=== PATIENT | male | born 1940 | race Asian ===

== ENCOUNTER 2017-05-24 10:10 | Day surgery (SDC) | payer BC ==
--- NOTE | 2017-05-24 19:28 | PROC ---
Bone Marrow Aspiration/Biopsy - Consent Risks and Benefits Explained: Yes Consent on Chart: Yes - Procedure Location: Left Iliac Crest Anesthesia: 1% Lidocaine Specimen: Obtained Position: Other (right lateral) Patient tolerated procedure: Well with minimal pain Sterile Dressing Applied: Yes
--- NOTE | 2017-05-24 19:33 | PN ---
Progress Note (short form) - Note Progress Note: PAtient seen and examined 77 y/o patient with myeloproliferative disorder on hydrea. Here for elective BMBX . h/o monoclonal B lymphocytosis. Also with anemia AFVSS Cor: RSR, No murmurs, No gallops Lungs: Clear to P&A Abd: Soft, Normal bowel sounds, No organomegaly Ext:No significant edema LAbs/Meds reviewed A/P 77 y/o patient with MPD here for elective bone marrow biopsy informed consent obtained
--- NOTE | 2017-05-30 16:45 | PATH ---
Surgical Pathology Report Patient Name: ALLYN OLVERA Med. Rec. #: [id number] /Age/Gender: 1940 (Age: 77) / M Account: [id number] Location: [facility] MED/SURG Taken: 05/24/2017 Received: 05/24/2017 Reported: 05/30/2017 Physicians: Mally Garibay M.D. 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 Bone Marrow Morphology Report ([id number]) shows the following: DIAGNOSIS: BONE MARROW CLOT SECTION, AND ASPIRATE SMEARS: LIMITED CORE BIOPSY/ CLOT SECTION DUE TO SAMPLING BIAS, SEE COMMENT. CELLULAR BONE MARROW ASPIRATE WITH MATURING TRILINEAGE HEMATOPOIESIS, WITH MILD DYSPLASIA AND ATYPICAL MEGAKARYOCYTES, SEE COMMENT. NO INCREASE OF MYELOBLASTS. 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 Prior bone marrow evaluation on record ([id number], 03/2015) demonstrated similar features; JAK2 [id number] was detected. Due to the limited nature of the core biopsy/particle clot section, the overall assessment is limited. Recent (05/21/2017) CBC shows normal leukocyte count and differential, normocytic normochromic anemia, and thrombocytosis. In the appropriate clinical setting, the findings in the current sample raise the possibility of a mixed myelodysplastic/myeloproliferative neoplasm (MDS/MPN), such as refractory anemia with ring sideroblasts, with associated thrombocytosis (RARS-T). Correlation with pertinent clinical, imaging and laboratory data, including the results of the cytogenetic/ FISH studies, is needed for complete diagnostic interpretation. Flow cytometry performed and interpreted at [place], [place] ([id number]) shows the following: INTERPRETATION: Small (2% of total events) clonal B-cell population with nonspecific immunophenotype is detected, see comment. No increase of myeloblasts. Comment: The findings are similar to those in a prior bone marrow flow cytometric assessment on record ([id number], March 2015- 3% clonal B-cells with nonspecific immunophenotype). The significance of the findings is indeterminate. The differential diagnosis includes monoclonal B-lymphocytosis (MBL), and very low level bone marrow involvement by a low-grade B-cell lymphoproliferative process with nonspecific immunophenotype. Phenotype: There is a mixed population of maturing myeloid cells, B cells and T cells. No abnormal myeloid maturation is seen. There is no increase in CD34 positive blasts, and they comprise less than 1% of the total cells. Myeloid cells are 90% and monocytes are 1.5% of total cells. The T-cells (3% of total) show no bowling T-cell antigen deletion. A clonal (Brinsmade, dim) B-cell population with moderate CD19, and bright CD20 and FMC7 expression, with no definite surface CD5, CD10, or CD11c expression, 2% of total events, is present. Hematologic FISH Report performed and interpreted at [facility] in [place], [place] ([id number]) shows the following. INTERPRETATION: No evidence of deletion 5q or monosomy 5 is present. No evidence of deletion 7q or monosomy 7 is present. No evidence of trisomy 8 (+8) is present. No evidence of deletion 13q14 is present. No evidence of a rearrangement of 11q23. No evidence of a deletion of the p53 (17p13) locus. No evidence of deletion 20q12 is present. Comments: The study is negative for many of the most common recurrent genetic abnormalities in Myelodysplastic Syndrome. Correlation with pending cytogenetics ([id number]) is recommended. Additional Molecular and cytogenetic tests are pending, and a report will follow. Electronically Signed Srikanth Nassar M.D. Addendum Reported: 06/04/2017 Addendum Diagnosis Cytogenetics Report received from [facility], [place], [place] ([id number]) shows 46,XY[20] Normal Karyotype. See [facility] report for additional details. Srikanth Nassar M.D. Addendum Reported: 06/05/2017 Addendum Diagnosis Molecular Pathology Report received from [facility] in [place], [place] ([id number]) shows the following: [employer] Sequencing MDS Panel: Integrated Molecular Report RESULTS Mutational Analysis Gene(s) With Detected Alterations Result Classification JAK2 p.V617F (c.1849G>T) Pathogenic SF3B1 p.K700E (c.2098A>G) Pathogenic TET2 p.T8971ip (c.3732_3733delCT) Pathogenic Genes with No Detected Alterations of the Amino Acid Sequence: ASXL1, CBLC, DNMT3A, ETV6, EZH2, IDH1, IDH2, NRAS, PHF6, RUNX1, TP53, U2AF1 INTERPRETATION OF RESULTS Molecular Mutation is detected in the JAK2 gene at p.V617F with frequency of 34.6%. Mutation is detected in the SF3B1 gene at p.K700E with frequency of 42.4%. Mutation is detected in the TET2 gene at p.L1889kg with frequency of 28.4%. TET methylcytosine dioxygenase 2 (TET2) is a human gene. TET2 encodes a protein that catalyzes the conversion of the modified DNA base methylcytosine to 5- hydroxymethylcytosine. Mutations in this gene were first identified in myeloid neoplasms with deletion or uniparental disomy at 4q24. TET2 may also be a candidate for active DNA demethylation, the catalytic removal of the methyl group added to the fifth carbon on the cytosine base. Somatic TET2 mutations are frequently observed in myelodysplastic syndromes (MDS), myeloproliferative neoplasms (MPN), MDS/MPN overlap syndromes including chronic myelomonocytic leukaemia (CMML), acute myeloid leukaemias (AML) and secondary AML (sAML). Nonsense and frame-shift mutations are generally associated with poor prognosis and worse overall survival. See [facility] report for additional details. Srikanth Nassar M.D. Gross Description A. Received in formalin, labeled with the patient's name and indicated on the requisition to the bone marrow biopsy, is a 0.4 x 0.3 x 0.1 cm aggregate of red-brown fragments of blood clot. No definite bone is identified. The specimen is entirely submitted in one cassette, following decalcification. B. Received in formalin labeled with the patient's name and indicated on the requisition to be bone marrow clot, is a 1.2 cm in length x 1.2 cm in diameter wide brown, cylindrical blood clot. The specimen is sectioned and entirely submitted in one cassette. C. Received are 13 bone marrow aspiration smear slides. D. Received are 2 green top tubes and 2 lavender top tubes of bone marrow blood which are sent to [facility]. 05/27/2017 saudi05/27/2017
== END 2017-05-24 13:50 | disposition home or self-care (01) ==
LOC: JONCNONCHE 10:10 → J7W 10:11 → JONCNONCHE 13:50
PROVIDERS: ATTEND Internal Medicine Hematology & Oncology
PROC: 07DR3ZX Extraction of Iliac Bone Marrow, Percutaneous Approach, Diagnostic (ICD-10-PCS; principal; 2017-05-24)
DX: D46.9 Myelodysplastic syndrome, unspecified (principal)
CPT/HCPCS: 88300-TC; 88305-TC; 88311-TC; 88313-TC

== ENCOUNTER 2018-04-02 19:26 | Inpatient (IN) | payer BC, OTHER ==
--- NOTE | 2018-04-02 20:08 | PDOC ---
Rapid Medical Evaluation Time Seen by Provider: 04/02/18 20:02 Medical Evaluation: 04/02/18 20:04 I have performed a brief in-person evaluation of this patient. The patient presents with a chief complaint of:syncope 3 days ago while in gym, refused ER transfer then, seen by Dr Morris today and sent to ED for eval. Pt c/ o ? sob of unclear duration. Possible dizziness. Denies CP. No BROWNE, n/v or blurry vision. Not on blood thinners, h/o dementia and chronic myeloproliferative d/o, on jakaki ( ruxolitinib) 15mg and f/u with Dr Bal Pertinent physical exam findings:stable and well I have ordered the following:ekg/CT head and labs The patient will proceed to the ED for further evaluation. Discharge Disposition - Diagnosis Syncope Qualifiers: Syncope type: unspecified Qualified Code(s): R55 - Syncope and collapse - Referrals Referrals: John Paul Morris MD [Primary Care Provider] - - Patient Instructions - Post Discharge Activity
[2018-04-02 20:30] LABS: BASO % 1.9 % (0-2.0); HEMATOCRIT 29.4 % (35.4-49); HEMOGLOBIN 9.9 GM/dL (11.7-16.9); LYMPH % 19.1 % (8-40); MCH 30.7 pg (25.7-33.7); MCHC 33.8 g/dl (32.0-35.9); MEAN CELL VOLUME 90.7 fl (80-96); MEAN PLT VOLUME 8.7 fl (7.5-11.1); MONO % 3.8 % (3.8-10.2); NEUT % 74.2 % (42.8-82.8); PLATELET COUNT 467 K/MM3 (134-434); RBC 3.24 M/mm3 (4.00-5.60); RDW 27.2 % (11.9-15.9); WHITE BLOOD COUNT 11.1 K/mm3 (4.0-10.0)
--- NOTE | 2018-04-02 20:48 | PDOC ---
History of Present Illness - General History Source: Patient Exam Limitations: No Limitations <Cheyenne Knapp - Last Filed: 04/02/18 20:48> <Claudia Jefferson - Last Filed: 04/03/18 00:39> - General Chief Complaint: Syncope/Near Syncope Stated Complaint: REF BY DOCTOR-ADMIT Time Seen by Provider: 04/02/18 20:02 - History of Present Illness Initial Comments: 04/02/18 20:21 77YOM with mild dementia, chronic myeloproliferative d/o on ruxolitinib ( follows with Dr. Bal), anemia, and a distant CVA vs TIA, who p/w complaint of syncopal 3 days ago while at the gym, for which he was not medically seen until his PCP appointment with Dr. Morris today. Dr. Morris instructed him to come into the ED. The patient describes climbing out of the whirlpool at his gym and trying to walk across the floor when he began to feel lightheaded and reached out to brace himself on a table beside him, but the next thing he remembers is awakening on the floor with many people around him and a educational administrator shaking him awake. The police and ambulance arrived on scene but he refused transport to the ED at that time. The patient notes SOB, mild lightheadedness, and mild low back pain since the incident, but denies CP, BROWNE, blurry vision, f/c /n/v/d/c, abdominal pain, black/bloody stool, dysuria, hematuria, or other symptoms. (Cheyenne Knapp) Past History - Past Medical History COPD: No Other medical history: myeloprolifervtive - Suicide/Smoking/Psychosocial Hx Smoking History: Never smoked Have you smoked in the past 12 months: No Information on smoking cessation initiated: No Drug/Substance Use Hx: No <Cheyenne Knapp - Last Filed: 04/02/18 20:48> <Claudia Jefferson - Last Filed: 04/03/18 00:39> - Past Medical History Allergies/Adverse Reactions: Allergies Allergy/AdvReac Type Severity Reaction Status Date / Time No Known Allergies Allergy Verified 04/02/18 20:08 Review of Systems - Review of Systems Able to Perform ROS?: Yes <KnappCheyenne - Last Filed: 04/02/18 20:48> <Claudia Jefferson - Last Filed: 04/03/18 00:39> - Review of Systems Comments:: 04/02/18 20:52 GEN: no fever, chills, malaise, generalized weakness, or weight change HEENT: blurry vision, no ear pain, sore throat, or eye pain CV: lightheadedness, syncope (3 days ago), no chest pain, palpitations, or edema RESP: no cough, wheezing, or SOB GI: no abdominal pain, nausea, vomiting, diarrhea, constipation, or white/black/ bloody stool : no dysuria, hematuria, incontinence, retention, bleeding, or discharge MSK: low back pain, no neck pain, muscle weakness/pain, or joint swelling/pain NEURO: no headache, seizure, vertigo, numbness, tingling, or focal weakness PSYCH: no substance use, no behavior change SKIN: no jaundice, no rash ROS otherwise negative except as noted in HPI (Cheyenne Knapp) *Physical Exam <Cheyenne Knapp - Last Filed: 04/02/18 20:48> <Claudia Jefferson - Last Filed: 04/03/18 00:39> - Vital Signs Last Vital Signs Temp Pulse Resp BP Pulse Ox 98.1 F 71 22 H 108/42 L 97 04/02/18 20:04 04/02/18 20:04 04/02/18 20:04 04/02/18 20:04 04/02/18 20:04 - Physical Exam Comments: 04/02/18 21:04 GENERAL: extremely pleasant elderly male, well-appearing, A/Ox4, no distress except a bit tearful at times, answers questions appropriately HEENT: 1 cm midsaggital superior frontal superficial laceration which appears > 1 day old, scabbed, healing well, PERRLA, EOMI, moist mucous membranes NECK/BACK: no midline ttp, no spinal stepoff or deformity, no hematoma, full ROM , neck supple CARDIOVASCULAR: regular rate/rhythm, normal S1S2, 1/6 systolic murmur LUSB, strong peripheral pulses, capillary refill <2 seconds, extremities wwp, no edema LUNGS/RESPIRATORY: no respiratory distress, CTAB GI/ABDOMEN: symmetric eugo-lx-agfi, normoactive BS, soft, no ttp, no midline pulsatile masses : no CVA tenderness EXTREMITIES: right anterior knee minimal pain to medial joint line, no stepoff, tiny superficial overlying abrasions, no muscle atrophy, no acute deformity, no edema SKIN: warm and dry, no pallor, no jaundice, no rash, no bruising, no skin breakdown, no cuts, no lesions NEUROLOGICAL: GCS 15, CN II-XII grossly intact, 5/5 strength proximally and distally, no facial droop (Cheyenne Knapp) - Procedure Monitoring Vital Signs: Procedure Monitoring Vital Signs Temperature 98.1 F 04/02/18 20:04 Pulse Rate 71 04/02/18 20:04 Respiratory Rate 22 H 04/02/18 20:04 Blood Pressure 108/42 L 04/02/18 20:04 O2 Sat by Pulse Oximetry (%) 97 04/02/18 20:04 ED Treatment Course - LABORATORY CBC & Chemistry Diagram: 04/02/18 20:23 04/02/18 20:23 <Cheyenne Knapp - Last Filed: 04/02/18 20:48> - LABORATORY CBC & Chemistry Diagram: 04/02/18 20:23 04/02/18 20:23 <Claudia Jefferson - Last Filed: 04/03/18 00:39> - ADDITIONAL ORDERS Additional order review: Laboratory Results 04/02/18 20:23 Sodium 140 Potassium 4.7 Chloride 106 Carbon Dioxide 27 Anion Gap 7 L BUN 39 H Creatinine 1.2 Creat Clearance w eGFR 58.56 Random Glucose 122 H Calcium 8.8 Total Bilirubin 0.8 AST 26 ALT 32 Alkaline Phosphatase 42 L Creatine Kinase 64 Troponin I < 0.02 Total Protein 7.6 Albumin 4.5 04/02/18 20:23 RBC 3.24 L MCV 90.7 MCHC 33.8 RDW 27.2 H MPV 8.7 Neutrophils % 74.2 Lymphocytes % 19.1 D Monocytes % 3.8 Eosinophils % 1.0 Basophils % 1.9 - RADIOLOGY Radiology Studies Ordered: Category Date Time Status CHEST PA & LAT [RAD] Stat Radiology 04/02/18 21:01 Taken SPINE-LUMBAR SACRAL [RAD] Stat Radiology 04/02/18 21:01 Taken - Medications Given in the ED: ED Medications Discontinued Medications Generic Name Dose Route Start Last Admin Trade Name Freq PRN Reason Stop Dose Admin Sodium Chloride 500 ml 04/02/18 21:08 04/02/18 21:42 Normal Saline - IV 04/02/18 21:09 500 ml ONCE ONE Administration Medical Decision Making <Cheyenne Knapp - Last Filed: 04/02/18 20:48> <Claudia Jefefrson - Last Filed: 04/03/18 00:39> - Medical Decision Making 04/02/18 20:54 Syncope: Elderly Pt p/w story very concerning for syncopal episode. Initial Vital Signs Temp Pulse Resp BP Pulse Ox 98.1 F 71 22 H 108/42 L 97 04/02/18 20:04 04/02/18 20:04 04/02/18 20:04 04/02/18 20:04 04/02/18 20:04 Exam: As noted in Physical Exam section. DDX IBNLT: reflex (neurocardiogenic e.g. vasovagal; situational e.g. micturition /post-tussive/post-exercise; carotid sinus hypersensitivity), cardiovascular ( arrhythmia e.g. sick sinus syndrome, conduction abnormality e.g. SVT/WPW/Brugada /long QT/ventricular dysrhythmia, structural heart disease e.g. valvular disease /HOCM/left atrial myxoma/IL; PE; cardiac tamponade), orthostatic hypotension ( volume depletion e.g. hemorrhage/vomiting/diarrhea/diuretics; drugs e.g. vasodilators/uyten-7-xhmwkjgh/clonidine/phenothiazines like Haldol; autonomic failure e.g. spinal cord injury/DM neuropathy/Parkinsons), or other causes not true syncope d/t subsequent neuro deficit (TIA/CVA, SAH, seizure, metabolic/ electrolyte derangement e.g. DM/DKA tend to cause gradual slide into unconsciousness), , infection/sepsis/vitals abnormalities, etc. W/U ordered: EKG CXR Head CT Labs as noted below TX ordered: IVF, O2, monitor EKG: Reviewed; results as noted in ECG Review section. CXR: CT Head: Labs: Reassessment: Repeat VS: ADMIT Per Dike Syncope Rule: Pt is high risk for ventricular dysrhythmia and/ or . Pt also reports XXXX exertional syncope and XXXX sudden in a relative. Pt also at higher risk given their older age and comorbidities. The Pt is unsafe for discharge at this time. They require further hospital observation, workup, and treatment. Microblog sent to [facility] for admission.Blank Decision to Admit order is placed per ED protocol. Spoke with admitting team videotape sales representative, in agreement Pt to be admitted.Decision to Admit order corrected with admitting team covering attendings name. Consult placed to on-call professor of nursing. (Cheyenne Knapp) *DC/Admit/Observation/Transfer <Cheyenne Knapp - Last Filed: 04/02/18 20:48> <Claudia Jefferson - Last Filed: 04/03/18 00:39> Diagnosis at time of Disposition: Syncope Qualifiers: Syncope type: unspecified Qualified Code(s): R55 - Syncope and collapse - Discharge Dispostion Condition at time of disposition: Fair Decision to Admit order Date/Time: Decision to Admit Order Category Date Time Status Decision to Admit to Hospital Routine Admission 04/02/18 23:44 Active - Referrals Referrals: John Paul Morris MD [Primary Care Provider] - - Patient Instructions - Post Discharge Activity
--- NOTE | 2018-04-02 20:59 | PDOC ---
Attending Attestation - HPI HPI: 04/02/18 21:46 The patient is a 77 year old male with a PMH of mild dementia, chronic myeloproliferative, anemia, and a distant ?CVA vs TIA? who presents to the ER s/ p syncopal episode 3 days ago. Patient was seen by Dr. Morris, his PCP, today and was told to come to the ER. Patient states he was coming out of the whirlpool at the gym and subsequently began to feel lightheaded prior to his syncopal episode. Patient admits to losing consciousness. Patient refused to come to the ER 3 days ago, but decided to come today at the recommendation of the PCP. Admits to shortness of breath, mild lightheadedness, and mild lower back pain since the syncopal episode, but denies any associated chest pain, headache, blurry vision, f/c/v/d/c or any urinary symptoms. Allergies: NKA Past surgical history: None reported. Social history: No reported alcohol, drug or cigarette use. PCP: Dr. Morris - Physicial Exam PE: 04/02/18 21:47 ADULT PHYSICAL EXAM Constitutional: Awake, alert, oriented. No acute distress. Head: (+) Small, superficial abrasion to the forehead, 3 days old, not actively bleeding. Eyes: PERRL. EOMI. Conjunctivae are not pale. ENT: Mucous membranes are moist and intact. Posterior pharynx without exudates or erythema. Uvula midline. Neck: Supple. Full ROM. No lymphadenopathy. Cardiovascular: Regular rate. Regular rhythm. S1, S2 regular. Distal pulses are 2+ and symmetric. Pulmonary/Chest: No evidence of respiratory distress. Clear to auscultation bilaterally No wheezing, rales or rhonchi. Abdominal: Soft and non-distended. There is no tenderness. No rebound, guarding or rigidity. No organomegaly. No palpable masses. Good bowel sounds. Back: No CVA tenderness. Musculoskeletal: No edema. No cyanosis. No clubbing. Full range of motion in all extremities. Nocalf tenderness. Radial/pedal pulses are intact and 2+ bilaterally Skin: Skin is warm and dry. No petechiae. No purpura. Neurological: Alert and oriented to person, place, and time. Cranial nerves II -XII are grossly intact. Normal speech. Strength is grossly symmetric. No sensory deficits. Psychiatric: Good eye contact. Normal interaction, affect and behavior. <Nena Becerra - Last Filed: 04/02/18 21:48> - Resident Resident Name: Cheyenne Knapp - ED Attending Attestation I have performed the following: I have examined & evaluated the patient, The case was reviewed & discussed with the resident, I agree w/resident's findings & plan, Exceptions are as noted - Medical Decision Making 04/02/18 20:59 I, Dr. Claudia Jefferson, DO, attest that this document has been prepared under my direction and personally reviewed by me in its entirety. I further attest, that it accurately reflects all work, treatment, procedures and medical decision -making performed by me. 04/02/18 21:38 77yo male with a syncopal episode 3 days ago after being in the whirlpool at a fitness center -no cp/sob/palpitations -no castillo -abrasion to forehead -knee contusion -ambulates with a cane -will send labs, head ct, xray -will obtain ekg -will most likely need obs overnight for syncopal episode 04/02/18 23:42 cxr clear lumbar spine without acute fx micro[facility] for obs covering for Alexandra 04/02/18 23:53 04/03/18 00:39 case discussed with Julieta Melara APN from [facility] covering for Dr. Gilmar solitario accepts pt to service <Claudia Jefferson - Last Filed: 04/03/18 00:39> *DC/Admit/Observation/Transfer <Nena Becerra - Last Filed: 04/02/18 21:48> - Discharge Dispostion Decision to Admit order: Yes <Claudia Jefferson - Last Filed: 04/03/18 00:39> Diagnosis at time of Disposition: Syncope Qualifiers: Syncope type: unspecified Qualified Code(s): R55 - Syncope and collapse - Discharge Dispostion Condition at time of disposition: Fair - Referrals Referrals: John Paul Morris MD [Primary Care Provider] - - Patient Instructions - Post Discharge Activity Heart Score/ECG Review - ECG Intrepretation Comment:: 04/02/18 23:43 sinus at 62, nl axis, nl interval, pac, no acute st/t wave findings <Claudia Jefferson - Last Filed: 04/03/18 00:39>
[2018-04-02 21:01] LABS: ALBUMIN 4.5 g/dl (3.4-5.0); ALK PHOS 42 U/L (45-117); ANION GAP 7 MMOL/L (8-16); BILIRUBIN,TOTAL 0.8 mg/dL (0.2-1); BLOOD UREA NITROGEN 39 mg/dL (7-18); CALCIUM 8.8 mg/dL (8.5-10.1); CHLORIDE 106 mmol/L (98-107); CO2 27 mmol/L (21-32); CREATININE 1.2 mg/dL (0.55-1.3); GLUCOSE,RANDOM 122 mg/dL (74-106); POTASSIUM 4.7 mmol/L (3.5-5.1); SGOT/AST 26 U/L (15-37); SGPT/ALT 32 U/L (13-61); SODIUM 140 mmol/L (136-145); TOT PROT 7.6 g/dl (6.4-8.2)
[2018-04-02] MEDS ORDERED: SODIUM CHLORIDE 0.9% 500 ML INFUS.BAG IV ONE (21:08)
[2018-04-02 21:38] LABS: ANISOCYTOSIS 2+; OVALOCYTE FEW; PLATELET ESTIMATE ADEQUATE; TEAR DROP CELLS FEW
--- NOTE | 2018-04-03 00:51 | HP ---
CHIEF COMPLAINT: Syncope PCP: Dr. John Paul Morris HISTORY OF PRESENT ILLNESS: This is a 77 y/o man with a PMHx of: Myeloproliferative Disease, Anemia, Mild Dementia, ?CVA vs ?TIA. Who presents to the ED sent in by the PMD for a syncopal episode x3 days ago. Patient reports feeling lightheaded and dizzy after getting out the whirlpool at the gym hitting his forehead and right knee. He reports that the data conversion developer at the gym assisted him up. He reports having back and right knee pain since the fall. Patient denies bowel or bladder incontinence. Patient denies CP, palpitations, SOB, numbness, slurred speech or weakness. Patient denies fever, chills, cough, AP, N/V/D, constipation, dysuria ER course was notable for: (1) Head CT- no acute intracranial process (2) Troponin < 0.02 (3) Glucose 122 (4) EKG- SR 62bpm no ST or TWI Recent Travel: None PAST MEDICAL HISTORY: See HPI PAST SURGICAL HISTORY: Social History: Smoking: None Alcohol: None Drugs: None Lives with family Family History: Allergies No Known Allergies Allergy (Verified 04/02/18 20:08) HOME MEDICATIONS: Flomax 0.4mg po daily Finasteride 5mg po daily Losartan ?mg po daily Pantoprazole 40mg po daily MVI 1 tab po daily REVIEW OF SYSTEMS CONSTITUTIONAL: generalized weakness, loss of appetite, Absent: fever, chills, diaphoresis, malaise, weight change HEENT: Absent: rhinorrhea, nasal congestion, throat pain, throat swelling, difficulty swallowing, mouth swelling, ear pain, eye pain, visual changes CARDIOVASCULAR: syncope Absent: chest pain, palpitations, irregular heart rate, lightheadedness, peripheral edema RESPIRATORY: Absent: cough, shortness of breath, dyspnea with exertion, orthopnea, wheezing, stridor, hemoptysis GASTROINTESTINAL: Absent: abdominal pain, abdominal distension, nausea, vomiting, diarrhea, constipation, melena, hematochezia GENITOURINARY: Absent: dysuria, frequency, urgency, hesitancy, hematuria, flank pain, genital pain MUSCULOSKELETAL: back pain, right knee pain Absent: myalgia, joint swelling, neck pain SKIN: abrasion to right knee Absent: rash, itching, pallor HEMATOLOGIC/IMMUNOLOGIC: Absent: easy bleeding, easy bruising, lymphadenopathy, frequent infections ENDOCRINE: Absent: unexplained weight gain, unexplained weight loss, heat intolerance, cold intolerance NEUROLOGIC: unsteady gait Absent: headache, focal weakness or paresthesias, dizziness, seizure, mental status changes, bladder or bowel incontinence PSYCHIATRIC: Absent: anxiety, depression, suicidal or homicidal ideation, hallucinations. PHYSICAL EXAMINATION Vital Signs - 24 hr 04/02/18 04/02/18 20:03 20:04 Temperature 98.1 F Pulse Rate 71 71 Respiratory 22 H Rate Blood Pressure 108/42 L O2 Sat by Pulse 97 97 Oximetry (%) GENERAL: Awake, alert, and fully oriented, in no acute distress. HEAD: Normal with no signs of trauma. EYES: Pupils equal, round and reactive to light, extraocular movements intact, sclera anicteric, conjunctiva clear. No lid lag. EARS, NOSE, THROAT: Ears normal, nares patent, oropharynx clear without exudates. Moist mucous membranes. NECK: Normal range of motion, supple without lymphadenopathy, JVD, or masses. LUNGS: Breath sounds equal, clear to auscultation bilaterally. No wheezes, and no crackles. No accessory muscle use. HEART: Regular rate and rhythm, normal S1 and S2 without murmur, rub or gallop. ABDOMEN: Soft, nontender, not distended, normoactive bowel sounds, no guarding, no rebound, no masses. No hepatomegaly or splenomegaly. MUSCULOSKELETAL: Normal range of motion at all joints. No bony deformities or tenderness. No CVA tenderness. UPPER EXTREMITIES: 2+ pulses, warm, well-perfused. No cyanosis. No clubbing. No peripheral edema. LOWER EXTREMITIES: 2+ pulses, warm, well-perfused. No calf tenderness. No peripheral edema. NEUROLOGICAL: Cranial nerves II-XII intact. Normal speech. Gait not observed. PSYCHIATRIC: Cooperative. Good eye contact. Appropriate mood and affect. SKIN: abrasion to right knee Warm, dry, normal turgor, no rashes noted, normal capillary refill. Laboratory Results - last 24 hr 04/02/18 04/02/18 20:23 20:23 WBC 11.1 H RBC 3.24 L Hgb 9.9 L Hct 29.4 L MCV 90.7 MCH 30.7 MCHC 33.8 RDW 27.2 H Plt Count 467 H MPV 8.7 Absolute Neuts (auto) 8.2 H Neutrophils % 74.2 Neutrophils % (Manual) 63.0 Band Neutrophils % 11.0 Lymphocytes % 19.1 D Lymphocytes % (Manual) 19.0 D Monocytes % 3.8 Monocytes % (Manual) 3 L Eosinophils % 1.0 Eosinophils % (Manual) 1.0 Basophils % 1.9 Basophils % (Manual) 0.0 Myelocytes % (Man) 3 H D Nucleated RBC % 0 Platelet Estimate Adequate Anisocytosis 2+ Tear Drop Cells Few Ovalocytes Few Sodium 140 Potassium 4.7 Chloride 106 Carbon Dioxide 27 Anion Gap 7 L BUN 39 H Creatinine 1.2 Creat Clearance w eGFR 58.56 Random Glucose 122 H Calcium 8.8 Total Bilirubin 0.8 AST 26 ALT 32 Alkaline Phosphatase 42 L Creatine Kinase 64 Troponin I < 0.02 Total Protein 7.6 Albumin 4.5 ASSESSMENT/PLAN: This is a 77 y/o man with a PMHx of Myeloproliferative Disease (on Ruxolitinib) , Anemia, distant ?CVA vs ?TIA. Placed on Tele Observation for Syncope for further evaluation of their emergent condition. Plan: See Problem List FEN PO Fluids as Tolerated Replete lytes prn Low Na Diet DVT ppx OOB SCDs Consider AC if LOS > 48 hrs Dispo: Observation Problem List - Problem (1) Syncope Assessment/Plan: Likely secondary to arrhythmia Cardiac monitoring Serial Enzymes Appreciate Cardiology consult Head CT- no acute intracranial pathology Echo in am Carotid Doppler r/o Stenosis Monitor CBC, BMP,TSH in am Fall precautions Code(s): R55 - SYNCOPE AND COLLAPSE Qualifiers: Syncope type: unspecified Qualified Code(s): R55 - Syncope and collapse (2) Right knee pain Assessment/Plan: Likely secondary to fall On exam: +FROM, mild tN to palpation, superficial abrasion Tylenol prn Consider Xray if condition worsens Consider PT eval for gait strengthening Code(s): M25.561 - PAIN IN RIGHT KNEE (3) Myeloproliferative disease Assessment/Plan: s/p Chemo Appreciate Hematology consult Code(s): D47.1 - CHRONIC MYELOPROLIFERATIVE DISEASE (4) History of CVA (cerebrovascular accident) Assessment/Plan: ? CVA vs ? TIA hx Fall precautions Code(s): Z86.73 - PRSNL HX OF TIA (TIA), AND CEREB INFRC W/O RESID DEFICITS Visit type - Emergency Visit Emergency Visit: Yes ED Registration Date: 04/03/18 Care time: The patient presented to the Emergency Department on the above date and was hospitalized for further evaluation of their emergent condition. - New Patient This patient is new to me today: Yes Date on this admission: 04/03/18 - Critical Care Critical Care patient: No
[2018-04-03 06:19] LABS: EOS % 2.2 % (0-4.5); HEMATOCRIT 24.8 % (35.4-49); HEMOGLOBIN 8.4 GM/dL (11.7-16.9); LYMPH % 24.7 % (8-40); MCH 30.5 pg (25.7-33.7); MCHC 33.7 g/dl (32.0-35.9); MEAN CELL VOLUME 90.4 fl (80-96); MEAN PLT VOLUME 8.3 fl (7.5-11.1); MONO % 4.2 % (3.8-10.2); NEUT % 66.9 % (42.8-82.8); PLATELET COUNT 371 K/MM3 (134-434); RBC 2.75 M/mm3 (4.00-5.60); RDW 27.1 % (11.9-15.9); WHITE BLOOD COUNT 8.6 K/mm3 (4.0-10.0)
[2018-04-03 07:10] LABS: ANION GAP 5 MMOL/L (8-16); BLOOD UREA NITROGEN 37 mg/dL (7-18); CALCIUM 8.8 mg/dL (8.5-10.1); CHLORIDE 108 mmol/L (98-107); CO2 29 mmol/L (21-32); GLUCOSE,RANDOM 84 mg/dL (74-106); MAGNESIUM 2.1 mg/dL (1.8-2.4); PHOSPHOROUS 3.8 mg/dL (2.5-4.9); POTASSIUM 4.5 mmol/L (3.5-5.1); SODIUM 142 mmol/L (136-145)
[2018-04-03] MEDS ORDERED: TAMSULOSIN HCL 0.4 MG CAP ONE (08:41)
[2018-04-03] MEDS: TAMSULOSIN HCL 0.4 MG CAP PO SCH (09:27)
[2018-04-03] MEDS: FINASTERIDE 5 MG TABLET (FP) PO SCH (10:28)
--- NOTE | 2018-04-03 11:41 | PN ---
Progress Note, Physician Chief Complaint: patient seen in ER she said two days ago he had syncopal episode at the gym today he is complaining of feeling tired - Current Medication List Current Medications: Active Medications Finasteride (Proscar -) 5 mg PO DAILY COUNT INCLUDES [facility] Last Admin: 04/03/18 10:28 Dose: 5 mg Tamsulosin HCl (Flomax -) 0.4 mg PO DAILY@0830 [facility] Last Admin: 04/03/18 09:27 Dose: 0.4 mg - Objective Vital Signs: Vital Signs Temperature 98.3 F 04/03/18 06:42 Pulse Rate 65 04/03/18 06:42 Respiratory Rate 18 04/03/18 06:42 Blood Pressure 109/53 L 04/03/18 06:42 O2 Sat by Pulse Oximetry (%) 98 04/03/18 06:42 Constitutional: Yes: Calm Cardiovascular: Yes: Regular Rate and Rhythm, S1, S2 Respiratory: Yes: CTA Bilaterally Gastrointestinal: Yes: Normal Bowel Sounds, Soft Edema: No Neurological: Yes: Alert, Oriented Labs: CBC, BMP 04/03/18 05:20 04/03/18 05:20 Problem List - Problems (1) Syncope Assessment/Plan: telemtry r/o vagal event echo neurology PT eval carotid doppler noted observation for 24 hrs Code(s): R55 - SYNCOPE AND COLLAPSE Qualifiers: Syncope type: unspecified Qualified Code(s): R55 - Syncope and collapse
--- NOTE | 2018-04-03 14:49 | CON.CARD ---
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) Cardio/Vascular: Yes: HTN - Smoking History Smoking history: Never smoked Have you smoked in the past 12 months: No Home Medications - Allergies Allergies/Adverse Reactions: Allergies Allergy/AdvReac Type Severity Reaction Status Date / Time No Known Allergies Allergy Verified 04/02/18 20:08 - Home Medications Home Medications: Ambulatory Orders Finasteride 5 mg PO DAILY 04/03/18 Losartan Potassium 0 mg PO DAILY 04/03/18 Ruxolitinib Phosphate [Jakafi] 10 mg PO BID 04/03/18 Review of Systems - Review of Systems Constitutional: reports: No Symptoms Eyes: reports: No Symptoms HENT: reports: No Symptoms Neck: reports: No Symptoms Cardiovascular: reports: No Symptoms Respiratory: reports: No Symptoms Gastrointestinal: reports: No Symptoms Genitourinary: reports: No Symptoms Breasts: reports: No Symptoms Reported Musculoskeletal: reports: Back Pain, Muscle Pain Integumentary: reports: No Symptoms Neurological: reports: Syncope Endocrine: reports: No Symptoms Hematology/Lymphatic: reports: No Symptoms Psychiatric: reports: No Symptoms Vital Signs: Vital Signs Temperature 98.3 F 04/03/18 06:42 Pulse Rate 65 04/03/18 06:42 Respiratory Rate 18 04/03/18 06:42 Blood Pressure 109/53 L 04/03/18 06:42 O2 Sat by Pulse Oximetry (%) 98 04/03/18 06:42 Constitutional: Yes: Well Nourished, No Distress, Calm Eyes: Yes: WNL, Conjunctiva Clear, EOM Intact HENT: Yes: WNL, Atraumatic, Normocephalic Neck: Yes: WNL, Supple, Trachea Midline Respiratory: Yes: WNL, Regular, CTA Bilaterally Gastrointestinal: Yes: WNL, Normal Bowel Sounds, Soft Renal/: Yes: WNL Cardiovascular: Yes: WNL, Regular Rate and Rhythm JVD: No Carotid Bruit: No PMI: Non-Displaced Heart Sounds: Yes: S1, S2 Murmur: Yes: Systolic Murmur, Grade 2 Musculoskeletal: Yes: WNL Extremities: Yes: WNL Edema: Yes Peripheral Pulses WNL: Yes Integumentary: Yes: WNL Neurological: Yes: WNL, Alert, Oriented ...Motor Strength: WNL - Other Data Labs, Other Data: CBC, BMP 04/03/18 05:20 04/03/18 05:20 Troponin, BNP 04/02/18 04/03/18 04/03/18 20:23 03:06 05:20 Troponin I < 0.02 < 0.02 < 0.02 Troponin, BNP 04/02/18 04/03/18 04/03/18 20:23 03:06 05:20 Troponin I < 0.02 < 0.02 < 0.02 Assessment/Plan The patient is a 66-year-old morbidly obese female, we've a history of diabetes , hypertension, hyperlipidemia, normal coronary arteries on cardiac catheterization 09/10/16 status post pericardiocentesis for pericardial effusion 09/10, atrial fibrillation, status post ablation 06/11 and watchman device 12/11 cholangiocarcinoma, status post chemotherapy and radiation therapy, now admitted with shortness of breath, palpitations, and tachycardia. The patient is in no apparent distress. There is no evidence of ischemia nor acute coronary syndrome. Likely a vagal event after getting out although warm pool. Would monitor for 24 hours. Please arrange for an echocardiogram. No further cardiac workup is needed at this point. The patient is stable.
--- NOTE | 2018-04-03 16:44 | EKG ---
Test Reason : Blood Pressure : / mmHG Vent. Rate : 062 BPM Atrial Rate : 062 BPM P-R Int : 176 ms QRS Dur : 084 ms QT Int : 444 ms P-R-T Axes : 049 -02 040 degrees QTc Int : 450 ms SINUS RHYTHM WITH PREMATURE ATRIAL COMPLEXES OTHERWISE NORMAL ECG NO PREVIOUS ECGS AVAILABLE Confirmed by SAMARA ORTIZ, MINI ([id number]) on 04/03/2018 4:43:45 PM Referred By: Confirmed By:MINI PASCUAL MD
[2018-04-03 16:59] VITALS: BMI 23.8
--- NOTE | 2018-04-03 22:52 | CONSULT ---
Consult - text type - Consultation Consultation Note: This is a 77 y/o man with a PMHx of: Myeloproliferative Disease, Anemia, Mild Dementia, ?CVA vs ?TIA. Who presents to the ED sent in by the PMD for a syncopal episode x3 days ago. Patient reports feeling lightheaded and dizzy after getting out the whirlpool at the gym hitting his forehead and right knee. He reports that the branch account executive at the gym assisted him up. He reports having back and right knee pain since the fall. Patient denies bowel or bladder incontinence. Patient denies CP, palpitations, SOB, numbness, slurred speech or weakness. Patient denies fever, chills, cough, AP, N/V/D, constipation, dysuria ? 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 symptoatic aneia anemia --due to PD ? worsened form jakafi ? occult gi bleed check gi consult transfuse PRBCs syncope? aneia related cardiology w/u to r/o cardiac etiology MPD--decrease jakafi to 5mg bid platelets well controlled
[2018-04-04] MEDS: JAKAFI 5 MG PO SCH ×3 (00:46→21:13)
--- NOTE | 2018-04-04 08:34 | PN ---
Progress Note, Physician - Current Medication List Current Medications: Active Medications Finasteride (Proscar -) 5 mg PO DAILY [facility] Last Admin: 04/03/18 10:28 Dose: 5 mg Losartan Potassium (Cozaar -) 25 mg PO DAILY [facility] Jakafi 5mg Patient's Own Medication (Non -Formulary) 1 each PO BID [facility] Last Admin: 04/04/18 00:46 Dose: Not Given Tamsulosin HCl (Flomax -) 0.4 mg PO DAILY@0830 [facility] Last Admin: 04/03/18 09:27 Dose: 0.4 mg - Objective Vital Signs: Vital Signs Temperature 97.8 F 04/04/18 05:00 Pulse Rate 60 04/04/18 05:00 Respiratory Rate 18 04/04/18 05:00 Blood Pressure 107/55 L 04/04/18 05:00 O2 Sat by Pulse Oximetry (%) 96 04/04/18 00:00 Cardiovascular: Yes: S1, S2 Respiratory: Yes: Regular, CTA Bilaterally Gastrointestinal: Yes: Normal Bowel Sounds, Soft. No: Tenderness Labs: CBC, BMP 04/03/18 05:20 04/03/18 05:20 Problem List - Problems (1) Syncope Assessment/Plan: MAYBE DUE TO ANEMIA MONITOR POST TRANSFUSION CARDIO AND NEURO Code(s): R55 - SYNCOPE AND COLLAPSE Qualifiers: Syncope type: unspecified Qualified Code(s): R55 - Syncope and collapse (2) Anemia Assessment/Plan: TRANSFUE PRBC FOLLOW LABS HEM ON CASE GI CONSULT Code(s): D64.9 - ANEMIA, UNSPECIFIED (3) Myeloproliferative disease Assessment/Plan: PER HEM Code(s): D47.1 - CHRONIC MYELOPROLIFERATIVE DISEASE (4) Right knee pain Assessment/Plan: XRAY NEG PT Code(s): M25.561 - PAIN IN RIGHT KNEE
[2018-04-04] MEDS: TAMSULOSIN HCL 0.4 MG CAP PO SCH (09:00)
[2018-04-04 09:03] LABS: BASO % 1.1 % (0-2.0); EOS % 2.2 % (0-4.5); HEMATOCRIT 30.5 % (35.4-49); HEMOGLOBIN 10.3 GM/dL (11.7-16.9); MCH 30.4 pg (25.7-33.7); MCHC 33.7 g/dl (32.0-35.9); MEAN CELL VOLUME 90.2 fl (80-96); MEAN PLT VOLUME 7.9 fl (7.5-11.1); MONO % 4.1 % (3.8-10.2); NEUT % 66.6 % (42.8-82.8); PLATELET COUNT 380 K/MM3 (134-434); RBC 3.38 M/mm3 (4.00-5.60)
[2018-04-04 09:41] LABS: ALBUMIN 3.9 g/dl (3.4-5.0); ALK PHOS 39 U/L (45-117); ANION GAP 5 MMOL/L (8-16); BILIRUBIN,TOTAL 1.6 mg/dL (0.2-1); BLOOD UREA NITROGEN 27 mg/dL (7-18); CHLORIDE 109 mmol/L (98-107); CO2 25 mmol/L (21-32); CREATININE 0.9 mg/dL (0.55-1.3); GLUCOSE,RANDOM 123 mg/dL (74-106); POTASSIUM 4.5 mmol/L (3.5-5.1); SGOT/AST 19 U/L (15-37); SGPT/ALT 24 U/L (13-61); SODIUM 139 mmol/L (136-145); TOT PROT 6.9 g/dl (6.4-8.2)
--- NOTE | 2018-04-04 09:42 | ECHO ---
Name: ALLYN OLVERA Exam:Adult Echocardiogram Study Date: 04/04/2018 07:57 AM Age: 77 yrs Reason For Study: LV Function Height: 70 in Weight: 165 lb BSA: 1.9 m2 MMode/2D Measurements & Calculations IVSd: 1.0 cm Ao root diam: 2.8 cm LVIDd: 5.2 cm LA dimension: 4.4 cm LVIDs: 3.7 cm LVPWd: 0.89 cm EDV(Teich): 129.6 ml LAV (MOD-bp): 104.0 ml ESV(Teich): 59.1 ml Doppler Measurements & Calculations MR max papo: 406.8 cm/sec TR max papo: 261.3 cm/sec MR max P.2 mmHg TR max P.3 mmHg Med Peak E' Papo: 6.1 cm/sec PI Vmax: 170.4 cm/sec Lat Peak E' Papo: 8.7 cm/sec Left Ventricle Ejection Fraction = 45-50%. Left ventricular systolic function is mildly reduced. There is mild globa l hypokinesis of the left ventricle. Right Ventricle The right ventricle is normal in size and function. Atria The left atrium is mildly dilated. Mitral Valve There is mild mitral valve thickening. There is no mitral valve stenosis. There is mild mitral regurg itation. Tricuspid Valve The tricuspid valve is normal in structure and function. There is mild tricuspid regurgitation. Aortic Valve There is mild aortic sclerosis.;. No hemodynamically significant valvular aortic stenosis. No aortic regurgitation is present. Pulmonic Valve The pulmonic valve is not well seen, but is grossly normal. There is no pulmonic valvular stenosis. M ild pulmonic valvular regurgitation. Great Vessels The aortic root is normal size. Pericardium/Pleura There is no pericardial effusion. Interpretation Summary There is mild global hypokinesis of the left ventricle. Ejection Fraction = 45-50%. Left ventricular systolic function is mildly reduced. The right ventricle is normal in size and function. The left atrium is mildly dilated. There is mild mitral valve thickening. There is mild mitral regurgitation. There is mild tricuspid regurgitation. There is mild aortic sclerosis.; Mild pulmonic valvular regurgitation. There is no pericardial effusion. MD Barros *Janice 04/04/2018 09:42 AM
[2018-04-04] MEDS: LOSARTAN POTASSIUM 25 MG TABLET PO SCH (10:21)
[2018-04-04] MEDS: FINASTERIDE 5 MG TABLET (FP) PO SCH (10:21)
--- NOTE | 2018-04-04 12:46 | CONSULT ---
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 He is here status post episode of syncope after getting out of a heated whirlpool bath. He reports he collapsed after exiting pool without warning and lost consciousness. He does not recall how long he was laying on the floor until an employee of the gym awoke him and he become reoriented to his surroundings. He recalls arrival of police and EMS. He does not report this ever happening before. He reports since the fall ongoing back pain and R knee pain. Pt has used a cane for the last year since a fall 1 year ago without LOC. ROS sig for few years of short term memory complaints. PMHX: Myeloproliferative Disease, Anemia, Mild Dementia, Medications: Flomax, Finasteride, Losartan 25mg po daily, Pantoprazole, ruxolitinib Head CT (reviewed): no evidence of traumatic changes. Mild atrophy and microvascular changes Carotid duplex: 50-69% in right common carotid. Mod L ICA stenosis Lumbar x-ray: worsening DJD from prior testing Labs on admission: WBC 11.1 -> 10, H/H 9.9/29. MARGARET: Bps 100-120/40-70s p 70s, currently receiving 2nd bag of PRBCs. 1 cm superficial laceration on forehead. Ecchymosis to R knee Neuro exam: Mentation/speech: Oriented to March 2018. Oriented [facility] recall 2/3 at 3 CNII-XII: Normal, without nystagmus. Motor: no drift. Strength normal. Normal reflexes including AJ's. Sensation: decreased vibration in feet B/L. Romberg + Coordination: No FTN dystaxia. Gait: shortened stride. Impression: 1. Vasovagal syncope 2. Lumbar spondylosis 3. Sensory loss with normal reflexes. ? Contribution of Cervical myelopathy to chronic gait complaints. 4. Mild OMS Plan: 1. Follow orthostatic BP changes and consider lowering of BP meds if persistant. Should improve after transfusions for anemia 2. Obtain MRI of Cervical and LS spines (Both C-). Can be done as outpatient 3. Obtain TSH, B12, Fe++, Iron, TIBC, Ferritin 4. Agree with telemetry and cardiac evaluation. Thank you very much. Jairon De Luna MD
--- NOTE | 2018-04-04 14:03 | PN ---
Progress Note, Physician History of Present Illness: The patient is a 66-year-old morbidly obese female, we've a history of diabetes , hypertension, hyperlipidemia, normal coronary arteries on cardiac catheterization 09/10/16 status post pericardiocentesis for pericardial effusion 09/10, atrial fibrillation, status post ablation 06/11 and watchman device 12/11 cholangiocarcinoma, status post chemotherapy and radiation therapy, now admitted with shortness of breath, palpitations, and tachycardia. The patient is in no apparent distress. - Current Medication List Current Medications: Active Medications Finasteride (Proscar -) 5 mg PO DAILY [facility] Last Admin: 04/04/18 10:21 Dose: 5 mg Losartan Potassium (Cozaar -) 25 mg PO DAILY [facility] Last Admin: 04/04/18 10:21 Dose: 25 mg Jakafi 5mg Patient's Own Medication (Non -Formulary) 1 each PO BID [facility] Last Admin: 04/04/18 10:23 Dose: 1 each Tamsulosin HCl (Flomax -) 0.4 mg PO DAILY@0830 [facility] Last Admin: 04/04/18 09:00 Dose: 0.4 mg - Objective Vital Signs: Vital Signs Temperature 98.4 F 04/04/18 09:00 Pulse Rate 70 04/04/18 09:00 Respiratory Rate 18 04/04/18 09:00 Blood Pressure 130/64 04/04/18 09:00 O2 Sat by Pulse Oximetry (%) 96 04/04/18 08:00 Constitutional: Yes: Well Nourished, No Distress, Calm Eyes: Yes: WNL, Conjunctiva Clear, EOM Intact HENT: Yes: WNL, Atraumatic, Normocephalic Neck: Yes: WNL, Supple, Trachea Midline Cardiovascular: Yes: WNL, Regular Rate and Rhythm Respiratory: Yes: WNL, Regular, CTA Bilaterally Gastrointestinal: Yes: WNL, Normal Bowel Sounds, Soft ...Rectal Exam: Yes: Deferred Musculoskeletal: Yes: Back Pain, Joint Stiffness Extremities: Yes: WNL Edema: No Peripheral Pulses: Left Radial: 1+, Right Radial: 1+, Left Doralis Pedis: 1+, Right Dorsalis Pedis: 1+, Left Femoral: 1+, Right Femoral: 1+ Integumentary: Yes: WNL Neurological: Yes: WNL Psychiatric: Yes: WNL Labs: CBC, BMP 04/04/18 08:35 04/04/18 08:35 Assessment/Plan The patient is a 66-year-old morbidly obese female, we've a history of diabetes , hypertension, hyperlipidemia, normal coronary arteries on cardiac catheterization 09/10/16 status post pericardiocentesis for pericardial effusion 09/10, atrial fibrillation, status post ablation 06/11 and watchman device 12/11 cholangiocarcinoma, status post chemotherapy and radiation therapy, now admitted with shortness of breath, palpitations, and tachycardia. The patient is in no apparent distress. There is no evidence of ischemia nor acute coronary syndrome. The ECG is normal. No arrhythmias noted on telemetry. The echocardiogram showed mild global left ventricular dysfunction. There were no other clinically important findings on the echo. There is no need for further monitoring. No need for further cardiac workup at this point. The patient is stable from the cardiac standpoint. Continue home medications. Please do not hesitate to call us PRN.
--- NOTE | 2018-04-04 17:15 | CON.GI ---
Consult Consult Specialty:: GI Referred by:: Dr Schafer - History of Present Illness History of Present Illness: 77 y/o male was admitted because of syncope associated with anemia. He has hitory of leuekmia and anemia. He under went EGD February of 2017 and was noted to have h. pylori gastritis. He underwent a colonoscopy in 2014 and was noted to have tubular adenoma. 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) Cardio/Vascular: Yes: HTN - Alcohol/Substance Use Hx Alcohol Use: No - Smoking History Smoking history: Never smoked Have you smoked in the past 12 months: No Home Medications - Allergies Allergies/Adverse Reactions: Allergies Allergy/AdvReac Type Severity Reaction Status Date / Time No Known Allergies Allergy Verified 04/02/18 20:08 - Home Medications Home Medications: Ambulatory Orders Finasteride 5 mg PO DAILY 04/03/18 Losartan Potassium 0 mg PO DAILY 04/03/18 Ruxolitinib Phosphate [Jakafi] 10 mg PO BID 04/03/18 Physical Exam-GI Vital Signs: Vital Signs Temperature 98.2 F 04/04/18 16:54 Pulse Rate 59 L 04/04/18 16:54 Respiratory Rate 19 04/04/18 16:54 Blood Pressure 128/66 04/04/18 16:54 O2 Sat by Pulse Oximetry (%) 96 04/04/18 08:00 Constitutional: Yes: Well Nourished Eyes: Yes: Conjunctiva Clear HENT: Yes: Atraumatic Neck: Yes: Supple Cardiovascular: Yes: Regular Rate and Rhythm Respiratory: Yes: CTA Bilaterally ...Palpate: Yes: Soft. No: Firm/Rigid, Guarding, Hepatomegaly, Mass, Pulsatile Mass, Splenomegaly, Tenderness Labs: CBC, BMP 04/04/18 08:35 04/04/18 08:35 Problem List - Problems (1) Anemia Assessment/Plan: multifactorial including seconary to leukemia and possible occult gi bleeding R> stool guaiac will need colonoscopy as an outpatient he was made aware to follow-up Code(s): D64.9 - ANEMIA, UNSPECIFIED
--- NOTE | 2018-04-04 19:50 | PN ---
Progress Note (short form) - Note Progress Note: Patient seen and examined Feels better after transfusion afvss Cor: RSR, No murmurs, No gallops Lungs: Clear to P&A Abd: Soft, Normal bowel sounds, No organomegaly Ext:No significant edema Labs/meds reviewed a/p 77 y/o patient with PD/DS, peptic lcer. HTN, BPH, comes in with anneia, syncope s/p transfusion cardilogy w/u will follow bassam jakafi 5mg bid
[2018-04-05] MEDS: FINASTERIDE 5 MG TABLET (FP) PO SCH (09:23)
[2018-04-05] MEDS: TAMSULOSIN HCL 0.4 MG CAP PO SCH (09:23)
[2018-04-05] MEDS: LOSARTAN POTASSIUM 25 MG TABLET PO SCH (09:23)
[2018-04-05] MEDS: JAKAFI 5 MG PO SCH ×2 (09:25→21:36)
[2018-04-05 09:37] LABS: HEMOGLOBIN 10.7 GM/dL (11.7-16.9); MCH 30.8 pg (25.7-33.7); MCHC 34.5 g/dl (32.0-35.9); MEAN CELL VOLUME 89.2 fl (80-96); MEAN PLT VOLUME 8.4 fl (7.5-11.1); PLATELET COUNT 400 K/MM3 (134-434); RBC 3.48 M/mm3 (4.00-5.60); RDW 24.9 % (11.9-15.9); WHITE BLOOD COUNT 9.5 K/mm3 (4.0-10.0)
--- NOTE | 2018-04-05 11:41 | DS ---
Physical Examination Vital Signs: Vital Signs Temperature 98 F 04/05/18 05:00 Pulse Rate 62 04/05/18 05:00 Respiratory Rate 18 04/05/18 05:00 Blood Pressure 128/66 04/05/18 05:00 O2 Sat by Pulse Oximetry (%) 96 04/04/18 20:24 Cardiovascular: Yes: Regular Rate and Rhythm Respiratory: Yes: Regular, CTA Bilaterally Gastrointestinal: Yes: Normal Bowel Sounds, Soft Edema: No Labs: CBC, BMP 04/05/18 09:05 04/04/18 08:35 Discharge Summary Reason For Visit: SYNCOPE Current Active Problems Anemia (Acute) History of CVA (cerebrovascular accident) (Acute) Myeloproliferative disease (Acute) Right knee pain (Acute) Syncope (Acute) Hospital Course: - Problems (1) Syncope Assessment/Plan: MAYBE DUE TO ANEMIA FELLS WELL MONITOR POST TRANSFUSION CARDIO AND NEURO Code(s): R55 - SYNCOPE AND COLLAPSE Qualifiers: Syncope type: unspecified Qualified Code(s): R55 - Syncope and collapse (2) Anemia Assessment/Plan: TRANSFUSED PRBC FOLLOW LABS--STABLE HEM ON CASE GI CONSULT NOTED--OUTPATIENT W/U Code(s): D64.9 - ANEMIA, UNSPECIFIED (3) Myeloproliferative disease Assessment/Plan: PER HEM Code(s): D47.1 - CHRONIC MYELOPROLIFERATIVE DISEASE (4) Right knee pain Assessment/Plan: XRAY NEG PT--NOTED ORTHO Code(s): M25.561 - PAIN IN RIGHT KNEE Condition: Fair - Instructions Referrals: John Paul Morris MD [Primary Care Provider] - 1 Week - Home Medications Comprehensive Discharge Medication List: Ambulatory Orders Finasteride 5 mg PO DAILY 04/03/18 Losartan Potassium 0 mg PO DAILY 04/03/18 Ruxolitinib Phosphate [Jakafi] 10 mg PO BID 04/03/18 Tamsulosin HCl [Flomax -] 0.4 mg PO DAILY@0830 #30 cap.er.24h 04/05/18
[2018-04-06 09:21] VITALS: BP 116/56; PULSE 60; TEMP 97.6
[2018-04-06] MEDS: TAMSULOSIN HCL 0.4 MG CAP PO SCH (10:13)
[2018-04-06] MEDS: JAKAFI 5 MG PO SCH (10:14)
[2018-04-06] MEDS: FINASTERIDE 5 MG TABLET (FP) PO SCH (10:14)
[2018-04-06] MEDS: LOSARTAN POTASSIUM 25 MG TABLET PO SCH (10:14)
--- NOTE | 2018-04-06 10:52 | CONSULT ---
Consult - text type - Consultation Consultation Note: FULL CONSULT DICTATED IMP: MILD DJD RIGHT KNEE PLAN: DC, F/U MY OFFICE FOR POSSIBLE INJECTION
--- NOTE | 2018-04-06 11:45 | CONS ---
DATE OF CONSULTATION: 04/05/2018 ORTHOPEDIC CONSULTATION/[facility] The patient is a 77-year-old male complaining of occasional right knee pain. No recent fall or trauma, only it buckled on him. Patient has been admitted for a cardiac workup and is being discharged today. On physical exam, no point tenderness in his knee. No effusion, ecchymosis, erythema. He has excellent range of motion of hip, knee, ankles, and toes. Stable varus/valgus anterior/posterior. Calves are soft, nontender. Neurovascularly intact. X-rays taken today in [facility] show some DJD on the medial aspect of his knee. IMPRESSION: Degenerative joint disease, right knee, mild, possibly more significant the films that were taken were not standing films. The patient will be going home today. He will follow up with me in the office. I can consider giving him injections or other treatments as an outpatient. LUTHER BAUTISTA M.D. TATYANA/[id number]
--- NOTE | 2018-04-06 12:10 | DS ---
Physical Examination Vital Signs: Vital Signs Temperature 97.6 F 04/06/18 09:00 Pulse Rate 60 04/06/18 09:00 Respiratory Rate 18 04/06/18 09:00 Blood Pressure 116/56 L 04/06/18 09:00 O2 Sat by Pulse Oximetry (%) 96 04/06/18 09:00 Cardiovascular: Yes: Regular Rate and Rhythm Respiratory: Yes: Regular, CTA Bilaterally Gastrointestinal: Yes: Normal Bowel Sounds, Soft Labs: CBC, BMP 04/05/18 09:05 04/04/18 08:35 Discharge Summary Reason For Visit: SYNCOPE Current Active Problems Anemia (Acute) History of CVA (cerebrovascular accident) (Acute) Myeloproliferative disease (Acute) Right knee pain (Acute) Syncope (Acute) Hospital Course: - Problems (1) Syncope Assessment/Plan: MAYBE DUE TO ANEMIA FELLS WELL MONITOR POST TRANSFUSION CARDIO AND NEURO Code(s): R55 - SYNCOPE AND COLLAPSE Qualifiers: Syncope type: unspecified Qualified Code(s): R55 - Syncope and collapse (2) Anemia Assessment/Plan: TRANSFUSED PRBC FOLLOW LABS--STABLE HEM ON CASE GI CONSULT NOTED--OUTPATIENT W/U Code(s): D64.9 - ANEMIA, UNSPECIFIED (3) Myeloproliferative disease Assessment/Plan: PER HEM Code(s): D47.1 - CHRONIC MYELOPROLIFERATIVE DISEASE (4) Right knee pain Assessment/Plan: XRAY NEG PT--NOTED ORTHO--D/W DR BAUTISTA--OUTPATIENT FOLLOW UP Code(s): M25.561 - PAIN IN RIGHT KNEE Condition: Fair Condition: Improved - Instructions Referrals: John Paul Morris MD [Primary Care Provider] - 1 Week Disposition: HOME - Home Medications Comprehensive Discharge Medication List: Ambulatory Orders Finasteride 5 mg PO DAILY 04/03/18 Losartan Potassium 0 mg PO DAILY 04/03/18 Ruxolitinib Phosphate [Jakafi] 10 mg PO BID 04/03/18 Tamsulosin HCl [Flomax -] 0.4 mg PO DAILY@0830 #30 cap.er.24h 04/05/18
== END 2018-04-06 14:34 | disposition home health service (06) | DRG 842 ==
LOC: JER 19:26 → UNDOADMOB 23:44 → JERBED 23:44 → INTOOBSV 23:44 → JERBED 04-03 00:42 → J4W 04-03 16:21 → OBSVTOIN 04-04 11:50
PROVIDERS: ADMIT Family Medicine; ATTEND Family Medicine
DX: C94.6 Myelodysplastic disease, not elsewhere classified (principal); D64.9 Anemia, unspecified; F03.90 Unspecified dementia, unspecified severity, without behavioral disturbance, psychotic disturbance, mood disturbance, and anxiety; R55 Syncope and collapse; K27.9 Peptic ulcer, site unspecified, unspecified as acute or chronic, without hemorrhage or perforation; M47.896 Other spondylosis, lumbar region; N40.0 Benign prostatic hyperplasia without lower urinary tract symptoms; M17.11 Unilateral primary osteoarthritis, right knee; Z86.73 Personal history of transient ischemic attack (TIA), and cerebral infarction without residual deficits
CPT/HCPCS: 36415; 36430; 70450-TC; 71046-TC-FY; 72100-TC-FY; 73560-TC-RT-FY; 80048; 80053; 82272; 82550; 83735; 84100; 84484; 85025; 85027; 86850; 86900; 86901; 86922; 93005; 93010; 93306-TC; 93880-TC; 97116-GP; 97161-GP; 99285-25; G0378; P9038; P9058

== ENCOUNTER 2020-03-10 11:18 | Emergency (ER) | payer BC, OTHER | END 2020-03-10 12:14 | disposition home or self-care (01) | LOC: JVIRT 11:18 | DX: Z20.822 Contact with and (suspected) exposure to COVID-19 (principal) | CPT/HCPCS: C9803; Q3014-GT; U0003 ==

== ENCOUNTER 2023-12-12 13:33 | Inpatient (IN) | payer BC, OTHER ==
[2023-12-12 15:01] LABS: HEMATOCRIT 29.8 % (35.4-49); HEMOGLOBIN 9.4 GM/dL (11.7-16.9); MCHC 31.6 g/dl (32.0-35.9); MEAN CELL VOLUME 88.5 fl (80-96); MEAN PLT VOLUME 7.3 fl (7.5-11.1); PLATELET COUNT 524 10^3/uL (134-434); RBC 3.37 M/mm3 (4.00-5.60); RDW 32.5 % (11.9-15.9); WHITE BLOOD COUNT 23.3 K/mm3 (4.0-10.0)
[2023-12-12 15:06] LABS: INR 1.36 (0.83-1.09); PROTHROMBIN TIME (PATIENT) 15.5 SEC (9.7-13.0)
[2023-12-12 15:09] LABS: ACTIVATED PTT 31.5 SECONDS (25.2-36.5)
[2023-12-12 15:15] LABS: ALBUMIN 3.7 g/dl (3.4-5.0); POTASSIUM 4.5 mmol/L (3.5-5.1)
[2023-12-12 15:16] LABS: BLOOD UREA NITROGEN 21.7 mg/dL (7-18)
[2023-12-12 15:20] LABS: TOT PROT 6.9 g/dl (6.4-8.2)
[2023-12-12 15:22] LABS: BILIRUBIN,TOTAL 1.8 mg/dL (0.2-1)
[2023-12-12 15:23] LABS: ANISOCYTOSIS 3+; MACROCYTOSIS 0; TEAR DROP CELLS 1+
[2023-12-12] MEDS ORDERED: PIPERACILLIN/TAZOB 4.5 GM 4.5 GM/100 ML BAG IVPB ONE (17:27)
[2023-12-12] MEDS ORDERED: VANCOMYCIN 1 GRAM (PRE-DOCKED) 1,000 MG/250 ML BAG IVPB ONE (17:28)
[2023-12-12] MEDS: PIPERACILLIN/TAZOB 4.5 GM 4.5 GM/100 ML BAG IVPB ONE (17:37)
[2023-12-13] MEDS: VANCOMYCIN 1,000 MG in DEXTROSE 5%-WATER - 250 ML IVPB ONE (07:21)
[2023-12-13 08:16] LABS: HEMATOCRIT 27.6 % (35.4-49); HEMOGLOBIN 8.9 GM/dL (11.7-16.9); MCH 28.3 pg (25.7-33.7); MCHC 32.5 g/dl (32.0-35.9); MEAN CELL VOLUME 87.2 fl (80-96); MEAN PLT VOLUME 7.9 fl (7.5-11.1); PLATELET COUNT 445 10^3/uL (134-434); RBC 3.16 M/mm3 (4.00-5.60); RDW 32.4 % (11.9-15.9); WHITE BLOOD COUNT 18.2 K/mm3 (4.0-10.0)
[2023-12-13 08:29] LABS: POTASSIUM 4.2 mmol/L (3.5-5.1)
[2023-12-13 08:34] LABS: CALCIUM 8.5 mg/dL (8.5-10.1); MAGNESIUM 2.1 mg/dL (1.8-2.4)
[2023-12-13 08:36] LABS: CREATININE 1.5 mg/dL (0.55-1.3)
[2023-12-13 09:02] LABS: ANISOCYTOSIS 2+; MACROCYTOSIS 1+; TEAR DROP CELLS 1+
[2023-12-13] MEDS ORDERED: LOSARTAN POTASSIUM 25 MG TABLET ONE (09:39)
[2023-12-13] MEDS ORDERED: PIPERACILLIN/TAZOB 3.375 GM 3.375 GM/50 ML BAG IVPB ONE (09:39)
[2023-12-13] MEDS: FINASTERIDE 5 MG TABLET (FP) PO SCH (09:42)
[2023-12-13] MEDS: PIPERACILLIN/TAZOB 3.375 GM 50 ML IVPB SCH (09:42)
[2023-12-13] MEDS: LOSARTAN POTASSIUM 25 MG TABLET PO SCH (09:42)
[2023-12-13] MEDS: TAMSULOSIN HCL 0.4 MG CAP PO SCH (09:42)
[2023-12-13] MEDS: PIPERACILLIN/TAZOB 3.375 GM 3.375 GM in DEXTROSE 5%-WATER - 50 ML IVPB SCH (10:12)
[2023-12-13 12:38] LABS: EPI CELLS >36 /uL (0-25.1); HYALINE CASTS 12 /uL (0-3.1); URINE APPEARANCE TURBID; URINE BILIRUBIN NEGATIVE (NEGATIVE); URINE COLOR DK YELLOW; URINE GLUCOSE (UA) NEGATIVE (NEGATIVE); URINE KETONE TRACE (NEGATIVE); URINE LEUK ESTERASE NEGATIVE (NEGATIVE); URINE NITRITE NEGATIVE (NEGATIVE); URINE PROTEIN 2+ (NEGATIVE); URINE RBC 14 /uL (0-23.9)
[2023-12-13 13:14] LABS: URINE BACTERIA 3 /uL (0-1359); URINE WBC 70 /uL (0-25.8)
[2023-12-13] MEDS ORDERED: VANCOMYCIN/WATER FOR INJ (PEG) 1,000 MG/200 ML BAG IVPB SCH (16:00)
[2023-12-13] MEDS ORDERED: VANCOMYCIN 1,000 MG in DEXTROSE 5%-WATER - 250 ML IVPB SCH (16:00)
[2023-12-13] MEDS: AMPICILLIN NA/SULBACTAM NA 3 GM in SODIUM CHLORIDE 100 ML IVPB SCH (19:46)
[2023-12-14 08:28] LABS: HEMATOCRIT 26.8 % (35.4-49); HEMOGLOBIN 8.4 GM/dL (11.7-16.9); MCH 27.4 pg (25.7-33.7); MCHC 31.2 g/dl (32.0-35.9); MEAN CELL VOLUME 87.8 fl (80-96); MEAN PLT VOLUME 8.5 fl (7.5-11.1); PLATELET COUNT 385 10^3/uL (134-434); RBC 3.06 M/mm3 (4.00-5.60); RDW 32.9 % (11.9-15.9); WHITE BLOOD COUNT 14.5 K/mm3 (4.0-10.0)
[2023-12-14 08:59] LABS: ALBUMIN 3.2 g/dl (3.4-5.0); CALCIUM 8.5 mg/dL (8.5-10.1)
[2023-12-14 09:03] LABS: CREATININE 1.6 mg/dL (0.55-1.3)
[2023-12-14 09:04] LABS: TOT PROT 6.2 g/dl (6.4-8.2)
[2023-12-14 10:55] LABS: ANISOCYTOSIS 2+; MACROCYTOSIS 1+; OVALOCYTE 1+; TEAR DROP CELLS 1+
[2023-12-15 16:53] VITALS: BMI 20.9
[2023-12-16 06:16] LABS: HEMATOCRIT 25.7 % (35.4-49); HEMOGLOBIN 8.2 GM/dL (11.7-16.9); MCH 28.2 pg (25.7-33.7); MCHC 32.1 g/dl (32.0-35.9); MEAN PLT VOLUME 8.5 fl (7.5-11.1); PLATELET COUNT 394 10^3/uL (134-434); RBC 2.92 M/mm3 (4.00-5.60); RDW 32.7 % (11.9-15.9); WHITE BLOOD COUNT 15.7 K/mm3 (4.0-10.0)
[2023-12-16 06:36] LABS: POTASSIUM 4.3 mmol/L (3.5-5.1)
[2023-12-16 06:40] LABS: CALCIUM 8.9 mg/dL (8.5-10.1)
[2023-12-16 06:41] LABS: BLOOD UREA NITROGEN 38.1 mg/dL (7-18)
[2023-12-16 06:44] LABS: CREATININE 1.2 mg/dL (0.55-1.3)
[2023-12-16 06:46] LABS: TOT PROT 6.1 g/dl (6.4-8.2)
[2023-12-16 07:48] LABS: BILIRUBIN,TOTAL 0.7 mg/dL (0.2-1)
[2023-12-16 08:55] LABS: ANISOCYTOSIS 3+; MACROCYTOSIS 0; TEAR DROP CELLS 1+
[2023-12-17 08:25] LABS: HEMATOCRIT 25.2 % (35.4-49); HEMOGLOBIN 7.8 GM/dL (11.7-16.9); MCH 27.2 pg (25.7-33.7); MEAN CELL VOLUME 87.6 fl (80-96); MEAN PLT VOLUME 7.9 fl (7.5-11.1); PLATELET COUNT 421 10^3/uL (134-434); RBC 2.87 M/mm3 (4.00-5.60)
[2023-12-17 08:40] LABS: POTASSIUM 4.3 mmol/L (3.5-5.1)
[2023-12-17 08:43] LABS: ALBUMIN 2.9 g/dl (3.4-5.0); BLOOD UREA NITROGEN 32.5 mg/dL (7-18); CALCIUM 8.6 mg/dL (8.5-10.1)
[2023-12-17 08:46] LABS: CREATININE 1.1 mg/dL (0.55-1.3)
[2023-12-17 08:48] LABS: BILIRUBIN,TOTAL 0.9 mg/dL (0.2-1); TOT PROT 6.1 g/dl (6.4-8.2)
[2023-12-17] MEDS: PIPERACILLIN/TAZOB 3.375 GM 50 ML IVPB SCH (18:40)
[2023-12-18 06:54] LABS: HEMATOCRIT 23.5 % (35.4-49); HEMOGLOBIN 7.5 GM/dL (11.7-16.9); MCH 28.1 pg (25.7-33.7); MEAN CELL VOLUME 87.7 fl (80-96); MEAN PLT VOLUME 7.9 fl (7.5-11.1); PLATELET COUNT 429 10^3/uL (134-434); RBC 2.68 M/mm3 (4.00-5.60); RDW 32.5 % (11.9-15.9); WHITE BLOOD COUNT 21.2 K/mm3 (4.0-10.0)
[2023-12-18 07:18] LABS: POTASSIUM 4.1 mmol/L (3.5-5.1)
[2023-12-18 07:25] LABS: ALBUMIN 2.8 g/dl (3.4-5.0); BLOOD UREA NITROGEN 29.5 mg/dL (7-18)
[2023-12-18 07:30] LABS: BILIRUBIN,TOTAL 0.9 mg/dL (0.2-1)
[2023-12-18 09:22] LABS: ANISOCYTOSIS 2+; MACROCYTOSIS 0; TARGET CELLS 1+
[2023-12-19 09:02] LABS: HEMATOCRIT 23.3 % (35.4-49); HEMOGLOBIN 7.3 GM/dL (11.7-16.9); MCH 27.6 pg (25.7-33.7); MCHC 31.5 g/dl (32.0-35.9); MEAN CELL VOLUME 87.6 fl (80-96); MEAN PLT VOLUME 8.2 fl (7.5-11.1); PLATELET COUNT 506 10^3/uL (134-434); RBC 2.66 M/mm3 (4.00-5.60); RDW 32.9 % (11.9-15.9); WHITE BLOOD COUNT 23.7 K/mm3 (4.0-10.0)
[2023-12-19 09:17] LABS: POTASSIUM 4.9 mmol/L (3.5-5.1)
[2023-12-19 09:20] LABS: ALBUMIN 2.8 g/dl (3.4-5.0); BLOOD UREA NITROGEN 28.5 mg/dL (7-18); CALCIUM 8.6 mg/dL (8.5-10.1)
[2023-12-19 09:25] LABS: BILIRUBIN,TOTAL 0.8 mg/dL (0.2-1); TOT PROT 5.9 g/dl (6.4-8.2)
[2023-12-19 09:32] LABS: ANISOCYTOSIS 2+; MACROCYTOSIS 0; TEAR DROP CELLS 1+
[2023-12-19] MEDS: IRON SUCROSE INJECTION 200 MG in SODIUM CHLORIDE 100 ML IVPB ONE (13:28)
[2023-12-20 13:40] LABS: HEMATOCRIT 24.1 % (35.4-49); HEMOGLOBIN 7.7 GM/dL (11.7-16.9); MEAN CELL VOLUME 87.4 fl (80-96); MEAN PLT VOLUME 7.8 fl (7.5-11.1); PLATELET COUNT 623 10^3/uL (134-434); RBC 2.76 M/mm3 (4.00-5.60); RDW 32.9 % (11.9-15.9); WHITE BLOOD COUNT 26.3 K/mm3 (4.0-10.0)
[2023-12-20 14:03] LABS: POTASSIUM 4.8 mmol/L (3.5-5.1)
[2023-12-20 14:06] LABS: ALBUMIN 3.1 g/dl (3.4-5.0); CALCIUM 8.8 mg/dL (8.5-10.1)
[2023-12-20 14:07] LABS: BLOOD UREA NITROGEN 28.2 mg/dL (7-18)
[2023-12-20 14:10] LABS: ANISOCYTOSIS 3+; MACROCYTOSIS 0; OVALOCYTE 1+
[2023-12-20 14:11] LABS: BILIRUBIN,TOTAL 0.7 mg/dL (0.2-1); TOT PROT 6.4 g/dl (6.4-8.2)
[2023-12-21 08:36] LABS: HEMATOCRIT 24.1 % (35.4-49); HEMOGLOBIN 7.5 GM/dL (11.7-16.9); MCH 27.2 pg (25.7-33.7); MEAN CELL VOLUME 87.6 fl (80-96); MEAN PLT VOLUME 8.1 fl (7.5-11.1); PLATELET COUNT 609 10^3/uL (134-434); RBC 2.75 M/mm3 (4.00-5.60); RDW 33.3 % (11.9-15.9); WHITE BLOOD COUNT 24.5 K/mm3 (4.0-10.0)
[2023-12-21 08:44] LABS: POTASSIUM 4.7 mmol/L (3.5-5.1)
[2023-12-21 08:46] LABS: BLOOD UREA NITROGEN 24.2 mg/dL (7-18); CALCIUM 8.5 mg/dL (8.5-10.1)
[2023-12-21 08:51] LABS: BILIRUBIN,TOTAL 0.7 mg/dL (0.2-1); TOT PROT 6.2 g/dl (6.4-8.2)
[2023-12-22 11:17] LABS: HEMATOCRIT 25.2 % (35.4-49); HEMOGLOBIN 7.7 GM/dL (11.7-16.9); MCH 27.1 pg (25.7-33.7); MCHC 30.8 g/dl (32.0-35.9); MEAN PLT VOLUME 7.9 fl (7.5-11.1); PLATELET COUNT 637 10^3/uL (134-434); RBC 2.86 M/mm3 (4.00-5.60); RDW 33.2 % (11.9-15.9); WHITE BLOOD COUNT 25.6 K/mm3 (4.0-10.0)
[2023-12-22 11:36] LABS: POTASSIUM 4.7 mmol/L (3.5-5.1)
[2023-12-22 11:38] LABS: ALBUMIN 3.1 g/dl (3.4-5.0); CALCIUM 8.5 mg/dL (8.5-10.1)
[2023-12-22 11:39] LABS: BLOOD UREA NITROGEN 23.2 mg/dL (7-18)
[2023-12-22 11:43] LABS: BILIRUBIN,TOTAL 0.7 mg/dL (0.2-1); TOT PROT 6.4 g/dl (6.4-8.2)
[2023-12-22] MEDS ORDERED: HYDROXYUREA 500 MG CAPSULE PO SCH (12:00)
[2023-12-22 12:03] LABS: ANISOCYTOSIS 1+; MACROCYTOSIS 0; OVALOCYTE 2+
[2023-12-25 08:08] LABS: HEMOGLOBIN 7.6 GM/dL (11.7-16.9); MCHC 31.8 g/dl (32.0-35.9); MEAN CELL VOLUME 87.9 fl (80-96); PLATELET COUNT 622 10^3/uL (134-434); RBC 2.72 M/mm3 (4.00-5.60); RDW 32.7 % (11.9-15.9); WHITE BLOOD COUNT 19.4 K/mm3 (4.0-10.0)
[2023-12-25 09:57] LABS: ANISOCYTOSIS 3+; MACROCYTOSIS 3+
[2023-12-26 09:00] VITALS: RESP 16
[2023-12-26 14:32] VITALS: BP 112/50; PULSE 74; TEMP 98.8
== END 2023-12-26 16:57 | disposition home or self-care (01) | DRG 194 ==
LOC: JER 13:33 → JERBED 18:51 → J4S 12-13 17:53
PROVIDERS: ADMIT Internal Medicine; ATTEND Family Medicine
DX: J18.9 Pneumonia, unspecified organism (principal); D47.1 Chronic myeloproliferative disease; R74.01 Elevation of levels of liver transaminase levels; D46.9 Myelodysplastic syndrome, unspecified; R63.0 Anorexia; I10 Essential (primary) hypertension; F03.90 Unspecified dementia, unspecified severity, without behavioral disturbance, psychotic disturbance, mood disturbance, and anxiety; D75.839 Thrombocytosis, unspecified; N40.0 Benign prostatic hyperplasia without lower urinary tract symptoms
CPT/HCPCS: 0241U-QW; 36415; 70450-TC; 71045-TC-FY; 71250-TC; 74230-TC-FY; 76705-TC; 80048; 80053; 80061; 81003; 82272; 82550; 82728; 82962; 83036; 83540; 83550; 83735; 84466; 84484; 85025; 85027; 85610; 85730; 86480; 86850; 86870; 86880; 86900; 86901; 86902; 87040; 87070; 87205; 87899; 88300-TC; 92611-GN; 93005; 93010; 93306-TC; 97116-GP; 97161-GP; 99285-25; J1756